=== PATIENT | male | born 1985 | race Caucasian/White ===

== ENCOUNTER → 2018-06-21 | Outpatient (CLI) | payer BC ==
--- NOTE | 2018-06-21 10:24 | Diagnostic Imaging Report ---
EXAMINATION: CHEST (PA AND LATERAL) CLINICAL INDICATION: 32-year-old male, hemoptysis. Cough. COMPARISON: FINDINGS: Heart size and mediastinal contours are unremarkable. There is no identified pneumothorax. There is no pleural effusion. There are predominantly linear opacities in the left midlung which may relate to subsegmental atelectasis. There are mild streaky opacities in the right and left lower lobes which are nonspecific. IMPRESSION: 1. Mild linear opacities in the right and left lower lobes which may relate to atelectasis or infiltrate. 2. Predominantly linear opacities in the left midlung most likely relating to subsegmental atelectasis. Dictated by: Dictated on workstation # [id number]
== END ==
LOC: RAD FS 10:05
PROVIDERS: ATTEND Family Medicine
DX: R04.2 Hemoptysis (principal); R91.8 Other nonspecific abnormal finding of lung field
CPT/HCPCS: 71046